=== PATIENT | male | born 1960 | race Caucasian/White ===

== ENCOUNTER 2017-05-10 12:38 | Emergency (ER) | payer BC ==
[2017-05-10 12:54] VITALS: RESP 18; TEMP 99; O2SAT 99
[2017-05-10] MEDS ORDERED: KETOROLAC TROMETHAMINE 30 MG/ML SOL IM ONE (13:12)
[2017-05-10] MEDS ORDERED: KETOROLAC TROMETHAMINE 30 MG/ML SOL ONE (13:18)
[2017-05-10 13:58] VITALS: BP 167/87; PULSE 71
== END 2017-05-10 14:02 | disposition home or self-care (01) ==
LOC: ED 12:38
DX: S20.212A Contusion of left front wall of thorax, initial encounter (principal); W31.89XA Contact with other specified machinery, initial encounter
CPT/HCPCS: 99283 ×2; 71100; 99282; J1885; 71010; 96372